=== PATIENT | female | born 1980 | race Caucasian/White ===

== ENCOUNTER 2020-02-18 21:12 | Emergency (ER) | payer OTHER ==
[~2020-02-18] VITALS: Ht 160 cm; Wt 133.8 kg
[2020-02-18] MEDS ORDERED: KETOROLAC TROMETHAMINE 30 MG/ML VIAL IV ONE (21:30)
[2020-02-18] MEDS ORDERED: DIPHENHYDRAMINE HCL INJ 50 MG/ML VIAL IV ONE (21:30)
[2020-02-18] MEDS ORDERED: TETRACAINE HCL 0.5% OPTH SOLN 4 ML BTL OP ONE (21:30)
[2020-02-18] MEDS ORDERED: ACETAMINOPHEN 325 MG TAB PO ONE (21:30)
[2020-02-18] MEDS ORDERED: CLONIDINE HCL 0.1 MG TAB PO ONE (21:30)
[2020-02-18] MEDS ORDERED: DEXAMETHASONE SOD PHOS 10 MG/1 ML VIAL IV ONE (21:30)
[2020-02-18] MEDS ORDERED: PROMETHAZINE 25MG/ NS 50ML (IV) IV ONE (21:30)
[2020-02-18] MEDS ORDERED: DEXAMETHASONE SOD PHOS INJ 4 MG/ML VIAL ONE (21:56)
[2020-02-18] MEDS ORDERED: SODIUM CHLORIDE 0.9% 50ML 50 ML ONE (21:57)
[2020-02-18] MEDS ORDERED: PROMETHAZINE HCL (IM) 25 MG/ML VIAL IM ONE (21:57)
[2020-02-18 22:35] VITALS: BP 150/92
== END 2020-02-18 22:46 | disposition home or self-care (01) ==
LOC: FSED 21:25
DX: R51.9 Headache, unspecified (principal); I16.0 Hypertensive urgency; I10 Essential (primary) hypertension
CPT/HCPCS: 70450; 80053; 81003; 81025; 85025; 96374; 96375; 96376; 99284; J1100 ×2; J1200; J1885; J2550